=== PATIENT | female | born 1975 | race African-American/Black ===

== ENCOUNTER → 2021-11-11 | Emergency (ER) | payer OTHER ==
[~2021-11-11] VITALS: Ht 162.6 cm; Wt 59.4 kg
[~2021-11-11] MED LIST: ACETAMINOPHEN 325 MG TABLET ONE; ACETAMINOPHEN 325 MG TABLET PO ONE; LIDOCAINE HCL/MPF 1% 30 ML VIAL IJ ONE
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
--- NOTE | 2021-11-11 02:45 | NUR ---
Tamela vaz in [facility] - 11/11/21 at 0258 by IZABELA MD FUENTES PLACED STITCHES.
[2021-11-11 03:10] VITALS: BP 114/78
== END | disposition home or self-care (01) ==
LOC: ER 01:50
DX: S01.81XA Laceration without foreign body of other part of head, initial encounter (principal); W18.30XA Fall on same level, unspecified, initial encounter; Y93.51 Activity, roller skating (inline) and skateboarding; Y92.89 Other specified places as the place of occurrence of the external cause; Y99.8 Other external cause status
CPT/HCPCS: 12011; 99282; A6403; J3490

== ENCOUNTER 2021-11-21 19:39 | Emergency (ER) | payer OTHER ==
[~2021-11-21] VITALS: Ht 160 cm; Wt 59.4 kg
[2021-11-21 19:41] VITALS: BP 110/69
== END 2021-11-21 20:38 | disposition home or self-care (01) ==
LOC: ER 19:42
DX: S01.81XD Laceration without foreign body of other part of head, subsequent encounter (principal); Z60.2 Problems related to living alone; X58.XXXD Exposure to other specified factors, subsequent encounter

== ENCOUNTER 2023-01-06 20:58 | Emergency (ER) | payer OTHER ==
[~2023-01-06] VITALS: Ht 160 cm; Wt 58.5 kg
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
[2023-01-06] MEDS ORDERED: IBUPROFEN 400 MG TABLET ONE (21:58)
[2023-01-06] MEDS ORDERED: IBUPROFEN 400 MG TABLET PO ONE (22:00)
[2023-01-06 23:02] VITALS: BP 112/62
--- NOTE | 2023-01-06 23:02 | NUR ---
Patient discharged to home in stable condition. Written and verbal after care instructions given. Patient verbalizes understanding of instruction.
== END 2023-01-06 23:03 | disposition home or self-care (01) ==
LOC: ER 21:17
DX: S16.1XXA Strain of muscle, fascia and tendon at neck level, initial encounter (principal); S40.012A Contusion of left shoulder, initial encounter; S40.011A Contusion of right shoulder, initial encounter; V89.2XXA Person injured in unspecified motor-vehicle accident, traffic, initial encounter; Y93.89 Activity, other specified; Y92.411 Interstate highway as the place of occurrence of the external cause; Y99.8 Other external cause status
CPT/HCPCS: 72050-TC

== ENCOUNTER 2025-03-10 12:19 | Emergency (ER) | payer OTHER ==
[~2025-03-10] VITALS: Ht 160 cm; Wt 57.2 kg
[2025-03-10 13:15] LABS: BASOPHILS % (AUTO) 0.6 % (0.0-2.0); HEMATOCRIT 37 % (33-45); HEMOGLOBIN 12.4 g/dL (11.5-14.8); LYMPHOCYTES # (AUTO) 1.2 K/uL (0.8-4.8); LYMPHOCYTES % (AUTO) 30.9 % (20.0-44.0); MEAN CORPUSCULAR HEMOGLOBIN 31 PG (26.0-33.0); MEAN CORPUSCULAR HGB CONC 34 g/dl (31.0-36.0); MEAN CORPUSCULAR VOLUME 91 fL (82-100); MONOCYTES # (AUTO) 0.4 K/uL (0.1-1.30); MONOCYTES % (AUTO) 10.1 % (2.0-12.0); NEUTROPHILS # (AUTO) 2.2 K/uL (1.8-8.9); NEUTROPHILS % (AUTO) 57.4 % (43.0-81.0); PLATELET COUNT (AUTO) 216 K/uL (150-450); RED BLOOD CELL COUNT(AUTO) 4.04 MIL/uL (4.0-5.2); RED CELL DISTRIBUTION WIDTH 12.9 % (11.5-15.0); WHITE BLOOD COUNT (AUTO) 3.9 K/uL (4.3-11.0)
[2025-03-10 13:35] LABS: CREATININE 0.7 mg/dL (0.6-1.3); POTASSIUM 3.9 mmol/L (3.5-5.1)
[2025-03-10 14:04] VITALS: BP 119/79; TEMP 98.2; O2SAT 98
== END 2025-03-10 13:50 | disposition home or self-care (01) ==
LOC: ER 12:24
DX: R20.2 Paresthesia of skin (principal)
CPT/HCPCS: 36415; 80048-TC; 85025-TC